=== PATIENT | male | born 2000 | race Caucasian/White ===

== ENCOUNTER 2022-06-12 21:16 | Observation (INO) | payer OTHER ==
[2022-06-12] MEDS ORDERED: IBUPROFEN 400 MG TABLET (FP) PO ONE ×2 (23:12→23:38)
[2022-06-12 23:52] LABS: BASO % 0.5 % (0-2.0); EOS % 0.6 % (0-4.5); HEMATOCRIT 42.7 % (35.4-49); HEMOGLOBIN 14.5 GM/dL (11.7-16.9); LYMPH % 18.1 % (8-40); MCH 29.6 pg (25.7-33.7); MCHC 34.1 g/dl (32.0-35.9); MEAN CELL VOLUME 86.9 fl (80-96); MEAN PLT VOLUME 7.6 fl (7.5-11.1); MONO % 9.8 % (3.8-10.2); PLATELET COUNT 174 10^3/uL (134-434); RBC 4.91 M/mm3 (4.00-5.60); RDW 12.9 % (11.9-15.9)
[2022-06-13] MEDS ORDERED: FAMOTIDINE 20 MG TABLET PO ONE (00:04)
[2022-06-13] MEDS ORDERED: FAMOTIDINE 20 MG TABLET ONE (00:11)
[2022-06-13 00:20] LABS: BLOOD UREA NITROGEN 9.8 mg/dL (7-18); CALCIUM 9.3 mg/dL (8.5-10.1)
[2022-06-13 00:24] LABS: CREATININE 0.8 mg/dL (0.55-1.3)
[2022-06-13 00:25] LABS: BILIRUBIN,TOTAL 0.4 mg/dL (0.2-1); TOT PROT 7.6 g/dl (6.4-8.2)
[2022-06-13] MEDS ORDERED: ASPIRIN 325 MG TABLET PO ONE (03:14)
[2022-06-13] MEDS ORDERED: ASPIRIN 81 MG CHEWABLE TABLETS ONE (03:45)
[2022-06-13 03:47] LABS: URINE APPEARANCE CLEAR; URINE BILIRUBIN NEGATIVE (NEGATIVE); URINE COLOR YELLOW; URINE GLUCOSE (UA) NEGATIVE (NEGATIVE); URINE KETONE 2+ (NEGATIVE); URINE LEUK ESTERASE NEGATIVE (NEGATIVE); URINE NITRITE NEGATIVE (NEGATIVE); URINE PROTEIN NEGATIVE (NEGATIVE)
[2022-06-13 03:54] LABS: OPIATES, URI NEGATIVE (NEGATIVE); PHENCYCLIDINE,URINE NEGATIVE (NEGATIVE)
[2022-06-13 04:08] LABS: COCAINE, UR NEGATIVE (NEGATIVE); METHADONE, UR NEGATIVE (NEGATIVE); URINE AMPHETAMINES NEGATIVE (NEGATIVE); URINE BARBITURATES NEGATIVE (NEGATIVE); URINE BENZODIAZEPINES NEGATIVE (NEGATIVE)
[2022-06-13] MEDS ORDERED: SODIUM CHLORIDE 1,000 ML IV STA (05:26)
[2022-06-13] MEDS ORDERED: IBUPROFEN 600 MG TABLET (FP) PO SCH ×2 (05:30→06:47)
[2022-06-13 05:48] LABS: HEMATOCRIT 40.4 % (35.4-49); HEMOGLOBIN 13.8 GM/dL (11.7-16.9); MCH 30.2 pg (25.7-33.7); MCHC 34.2 g/dl (32.0-35.9); MEAN CELL VOLUME 88.5 fl (80-96); PLATELET COUNT 167 10^3/uL (134-434); RBC 4.57 M/mm3 (4.00-5.60); RDW 12.7 % (11.9-15.9); WHITE BLOOD COUNT 9.3 K/mm3 (4.0-10.0)
[2022-06-13] MEDS ORDERED: IBUPROFEN 600 MG TABLET (FP) PO ONE (05:55)
[2022-06-13 06:07] LABS: CHLORIDE 104 mmol/L (98-107); SODIUM 138 mmol/L (136-145)
[2022-06-13 06:09] LABS: CALCIUM 9.3 mg/dL (8.5-10.1)
[2022-06-13 06:10] LABS: ALBUMIN 3.6 g/dl (3.4-5.0); ANION GAP 4 MMOL/L (8-16); BLOOD UREA NITROGEN 9.8 mg/dL (7-18); CO2 30 mmol/L (21-32); GLUCOSE,RANDOM 87 mg/dL (74-106)
[2022-06-13 06:13] LABS: CREATININE 0.9 mg/dL (0.55-1.3); PHOSPHOROUS 3.8 mg/dL (2.5-4.9); SGOT/AST 12 U/L (15-37); SGPT/ALT 21 U/L (13-61)
[2022-06-13 06:15] LABS: BILIRUBIN,TOTAL 0.4 mg/dL (0.2-1)
[2022-06-13 06:16] LABS: ALK PHOS 58 U/L (45-117)
[2022-06-13 09:11] VITALS: BMI 23.6
[2022-06-13] MEDS: ENOXAPARIN NA (PORCINE) 40 MG/0.4 ML DISP.SYRIN SQ SCH (09:26)
[2022-06-13] MEDS: PANTOPRAZOLE 40 MG TABLET PO SCH (09:26)
[2022-06-13] MEDS: SODIUM CHLORIDE 1,000 ML IV SCH ×2 (09:29→14:35)
[2022-06-13] MEDS ORDERED: COLCHICINE 0.6 MG CAP PO SCH (16:15)
[2022-06-13] MEDS: IBUPROFEN 400 MG TABLET (FP) PO SCH (22:30)
[2022-06-14] MEDS: SODIUM CHLORIDE 1,000 ML IV SCH ×2 (07:00→22:19)
[2022-06-14] MEDS: COLCHICINE 0.6 MG TAB PO SCH (09:35)
[2022-06-14] MEDS: IBUPROFEN 400 MG TABLET (FP) PO SCH ×2 (09:35→22:15)
[2022-06-14] MEDS: PANTOPRAZOLE 40 MG TABLET PO SCH (09:35)
[2022-06-14] MEDS: ENOXAPARIN NA (PORCINE) 40 MG/0.4 ML DISP.SYRIN SQ SCH (09:35)
[2022-06-14] MEDS: ASPIRIN 325 MG TABLET PO SCH (09:38)
[2022-06-14 09:50] LABS: BASO % 0.4 % (0-2.0); HEMATOCRIT 43.1 % (35.4-49); HEMOGLOBIN 14.7 GM/dL (11.7-16.9); LYMPH % 19.6 % (8-40); MCH 29.6 pg (25.7-33.7); MCHC 34.1 g/dl (32.0-35.9); MEAN CELL VOLUME 86.8 fl (80-96); MEAN PLT VOLUME 8.2 fl (7.5-11.1); MONO % 11.6 % (3.8-10.2); NEUT % 67.4 % (42.8-82.8); PLATELET COUNT 174 10^3/uL (134-434); RBC 4.96 M/mm3 (4.00-5.60); RDW 13.2 % (11.9-15.9); WHITE BLOOD COUNT 8.1 K/mm3 (4.0-10.0)
[2022-06-14 10:02] LABS: CHLORIDE 108 mmol/L (98-107); SODIUM 140 mmol/L (136-145)
[2022-06-14 10:04] LABS: ALBUMIN 3.5 g/dl (3.4-5.0); ANION GAP 5 MMOL/L (8-16); BLOOD UREA NITROGEN 10.3 mg/dL (7-18); CALCIUM 8.7 mg/dL (8.5-10.1); CO2 27 mmol/L (21-32); GLUCOSE,RANDOM 78 mg/dL (74-106); MAGNESIUM 1.8 mg/dL (1.8-2.4)
[2022-06-14 10:06] LABS: CREATININE 0.8 mg/dL (0.55-1.3); SGPT/ALT 22 U/L (13-61)
[2022-06-14 10:08] LABS: BILIRUBIN,TOTAL 0.4 mg/dL (0.2-1); SGOT/AST 15 U/L (15-37)
[2022-06-14 10:09] LABS: ALK PHOS 62 U/L (45-117)
[2022-06-15] MEDS: SODIUM CHLORIDE 1,000 ML IV SCH (06:46)
[2022-06-15] MEDS: ASPIRIN 325 MG TABLET PO SCH (08:59)
[2022-06-15] MEDS: PANTOPRAZOLE 40 MG TABLET PO SCH (08:59)
[2022-06-15] MEDS: COLCHICINE 0.6 MG TAB PO SCH (09:00)
[2022-06-15] MEDS: IBUPROFEN 400 MG TABLET (FP) PO SCH ×2 (09:00→21:09)
[2022-06-15] MEDS: ENOXAPARIN NA (PORCINE) 40 MG/0.4 ML DISP.SYRIN SQ SCH (09:01)
[2022-06-15 12:58] LABS: BASO % 0.3 % (0-2.0); EOS % 0.9 % (0-4.5); HEMATOCRIT 43.7 % (35.4-49); LYMPH % 25.9 % (8-40); MCH 29.6 pg (25.7-33.7); MCHC 34.3 g/dl (32.0-35.9); MEAN CELL VOLUME 86.3 fl (80-96); MEAN PLT VOLUME 8.3 fl (7.5-11.1); MONO % 13.3 % (3.8-10.2); NEUT % 59.6 % (42.8-82.8); PLATELET COUNT 180 10^3/uL (134-434); RBC 5.06 M/mm3 (4.00-5.60); RDW 12.7 % (11.9-15.9); WHITE BLOOD COUNT 6.7 K/mm3 (4.0-10.0)
[2022-06-15 14:26] LABS: TOT PROT 7.2 g/dl (6.4-8.2)
[2022-06-15 14:28] LABS: ALBUMIN 3.6 g/dl (3.4-5.0); BILIRUBIN,TOTAL 0.3 mg/dL (0.2-1)
[2022-06-15 14:29] LABS: CREATININE 0.8 mg/dL (0.55-1.3)
[2022-06-15 14:30] LABS: BLOOD UREA NITROGEN 7.6 mg/dL (7-18); MAGNESIUM 1.8 mg/dL (1.8-2.4)
[2022-06-15 14:34] LABS: CALCIUM 9.1 mg/dL (8.5-10.1)
[2022-06-16] MEDS: IBUPROFEN 400 MG TABLET (FP) PO SCH (08:59)
[2022-06-16] MEDS: PANTOPRAZOLE 40 MG TABLET PO SCH (08:59)
[2022-06-16] MEDS: ASPIRIN 325 MG TABLET PO SCH (09:00)
[2022-06-16] MEDS: ENOXAPARIN NA (PORCINE) 40 MG/0.4 ML DISP.SYRIN SQ SCH (09:00)
[2022-06-16] MEDS: COLCHICINE 0.6 MG TAB PO SCH (09:00)
[2022-06-16 09:17] VITALS: BP 108/73; PULSE 68; RESP 18; TEMP 98.2
[2022-06-16 10:11] LABS: BASO % 0.7 % (0-2.0); EOS % 1.8 % (0-4.5); HEMATOCRIT 42.2 % (35.4-49); HEMOGLOBIN 14.3 GM/dL (11.7-16.9); MCH 29.1 pg (25.7-33.7); MCHC 33.8 g/dl (32.0-35.9); MEAN CELL VOLUME 86.2 fl (80-96); MEAN PLT VOLUME 8.3 fl (7.5-11.1); MONO % 12.4 % (3.8-10.2); NEUT % 62.1 % (42.8-82.8); PLATELET COUNT 180 10^3/uL (134-434); RBC 4.89 M/mm3 (4.00-5.60); WHITE BLOOD COUNT 7.3 K/mm3 (4.0-10.0)
[2022-06-16 10:38] LABS: ALBUMIN 3.2 g/dl (3.4-5.0)
[2022-06-16 10:39] LABS: CREATININE 0.8 mg/dL (0.55-1.3)
[2022-06-16 10:40] LABS: BILIRUBIN,TOTAL 0.2 mg/dL (0.2-1); TOT PROT 6.6 g/dl (6.4-8.2)
[2022-06-16 10:42] LABS: CALCIUM 8.8 mg/dL (8.5-10.1); MAGNESIUM 1.8 mg/dL (1.8-2.4)
== END 2022-06-16 12:55 | disposition home or self-care (01) ==
LOC: JER 21:16 → JERBED 06-13 02:02 → J4S 06-13 07:53
PROVIDERS: ADMIT Internal Medicine; ATTEND Nurse Practitioner Acute Care
PROC: 3E023GC Introduction of Other Therapeutic Substance into Muscle, Percutaneous Approach (ICD-10-PCS; principal; 2022-06-13)
PROC: 3E0337Z Introduction of Electrolytic and Water Balance Substance into Peripheral Vein, Percutaneous Approach (ICD-10-PCS; 2022-06-13)
DX: R07.9 Chest pain, unspecified (principal); R10.9 Unspecified abdominal pain; R77.8 Other specified abnormalities of plasma proteins; Z29.8 Encounter for other specified prophylactic measures
CPT/HCPCS: 0241U-QW; 36415; 71046-TC-FY; 71260-TC; 74160-TC; 80053; 80061; 80307; 81003; 82550; 82553; 83036; 83735; 84100; 84443; 84484; 85025; 85027; 86140; 87045; 87046; 87324; 87425; 87449; 87798; 93005; 93010; 93306-TC; 93970-TC; 96360; 96372; 99285-25; G0378; Q9967